=== PATIENT | female | born 1955 | race Caucasian/White ===

== ENCOUNTER 2018-06-05 08:10 | Day surgery (SDC) | payer MEDICARE, OTHER ==
[~2018-06-05 08:10] MED LIST: LIDOCAINE 2% (SDV) 5 ML INJ
[2018-06-05] MEDS ORDERED: PROPOFOL 60 ML (08:59)
== END 2018-06-05 14:39 | disposition home or self-care (01) ==
LOC: GIL 08:10
DX: R19.4 Change in bowel habit (principal); D12.5 Benign neoplasm of sigmoid colon; K64.8 Other hemorrhoids; D50.9 Iron deficiency anemia, unspecified; E78.5 Hyperlipidemia, unspecified
CPT/HCPCS: 45380; 88305